=== PATIENT | male | born 1990 | race Caucasian/White ===

== ENCOUNTER → 2020-09-14 | Outpatient (CLI) | payer OTHER ==
--- NOTE | 2020-09-30 12:32 | P.CEMON ---
14 day event monitor note: Procedure details: Patient warned event monitor for a total of 14 days from 09/14/2020 until 09/25/2020. Patient was compliant with wearing monitor total of 62% of the time. Findings: Baseline rhythm is normal sinus rhythm. Patient had a total of 92 automatically triggered and symptom triggered events. Events corresponded with normal sinus rhythm and sinus tachycardia. There was no SVT, no ventricular arrhythmias, no atrial fibrillation, no atrial flutter, no PVCs and no pauses greater than 2 seconds. Patient's symptoms were not specified however c orrelated with sinus rhythm, sinus tachycardia. There were rare PACs. Sinus tachycardia up to 180 bpm. Conclusions: 1. Sinus rhythm, sinus tachycardia 2. Symptoms corresponding with sinus rhythm 3. Rare PACs 4. No atrial fibrillation, atrial flutter, ventricular ectopy or pauses greater than 2 seconds.
--- NOTE | 2020-10-03 11:43 | EM ---
14 day event monitor note: Procedure details: Patient warned event monitor for a total of 14 days from 09/14/2020 until 09/25/2020. Patient was compliant with wearing monitor total of 62% of the time. Findings: Baseline rhythm is normal sinus rhythm. Patient had a total of 92 automatically triggered and symptom triggered events. Events corresponded with normal sinus rhythm and sinus tachycardia. There was no SVT, no ventricular arrhythmias, no atrial fibrillation, no atrial flutter, no PVCs and no pauses greater than 2 seconds. Patient's symptoms were not specified however correlated with sinus rhythm, sinus tachycardia. There were rare PACs. Sinus tachycardia up to 180 bpm. Conclusions: 1. Sinus rhythm, sinus tachycardia 2. Symptoms corresponding with sinus rhythm 3. Rare PACs 4. No atrial fibrillation, atrial flutter, ventricular ectopy or pauses greater than 2 seconds. [facility]
== END | disposition home or self-care (01) ==
LOC: RADECHMAIN 12:05
PROVIDERS: ATTEND Family Medicine
DX: R00.0 Tachycardia, unspecified (principal)
CPT/HCPCS: 93270

== ENCOUNTER 2021-12-26 02:40 | Emergency (ER) | payer OTHER ==
[2021-12-26] MEDS ORDERED: LORazepam 1 MG TAB PO STA (03:05)
[2021-12-26] MEDS ORDERED: ONDANSETRON 4 MG TAB PO STA (03:05)
--- NOTE | 2021-12-26 03:05 | ED ---
SOB HPI - General Chief Complaint: Shortness of Breath Stated Complaint: SOB Time Seen by Provider: 12/26/21 02:58 Source: patient Mode of arrival: ambulatory Limitations: no limitations - Related Data Allergies Allergy/AdvReac Type Severity Reaction Status Date / Time No Known Allergies Allergy Verified 12/26/21 02:52 Review of Systems ROS Statement: Those systems with pertinent positive or pertinent negative responses have been documented in the HPI. ROS Other: All systems not noted in ROS Statement are negative. Past Medical History Past Medical History: Hypertension, Thyroid Disorder Additional Past Medical History / Comment(s): covid + 08/2019,02/2021 History of Any Multi-Drug Resistant Organisms: None Reported Past Surgical History: No Surgical Hx Reported Past Psychological History: ADD/ADHD Smoking Status: Former smoker, Vaper Past Alcohol Use History: Occasional, Rare Past Drug Use History: Marijuana General Exam Limitations: no limitations Course Vital Signs 12/26/21 12/26/21 12/26/21 02:52 03:14 03:50 Temperature 98.3 F Pulse Rate 94 58 L Respiratory 24 26 H Rate Blood Pressure 147/72 O2 Sat by Pulse 98 Oximetry 12/26/21 03:56 Temperature Pulse Rate 58 L Respiratory Rate Blood Pressure O2 Sat by Pulse Oximetry Medical Decision Making - EKG Data -: EKG Interpreted by Me (EKG Shows sinus rhythm 63 NM 167 QRS 1:30 QTC 444) Disposition Clinical Impression: Bronchospasm Disposition: HOME SELF-CARE Condition: Good Instructions (If sedation given, give patient instructions): Bronchospasm (ED) Is patient prescribed a controlled substance at d/c from ED?: No Referrals: Karl Cottrell MD [Primary Care Provider] - 1-2 days
--- NOTE | 2021-12-26 03:22 | XR ---
EXAMINATION TYPE: XR chest 1V portable DATE OF EXAM: 12/26/2021 COMPARISON: 09/15/2010 HISTORY: Chest pain TECHNIQUE: FINDINGS: Heart and mediastinum are normal. Lungs are clear. Diaphragm is normal. Bony thorax appears normal. IMPRESSION: Normal chest. No adverse change.
[2021-12-26] MEDS ORDERED: IPRATROPIUM-ALBUTEROL 3 ML NEB INHALATION STA (03:45)
[2021-12-26 05:30] VITALS: BP 107/67; PULSE 77; RESP 16; TEMP 98.2
== END 2021-12-26 04:20 | disposition home or self-care (01) ==
LOC: EC 02:40
DX: J98.01 Acute bronchospasm (principal); I10 Essential (primary) hypertension; F90.9 Attention-deficit hyperactivity disorder, unspecified type; Z87.891 Personal history of nicotine dependence; Z72.89 Other problems related to lifestyle; F12.90 Cannabis use, unspecified, uncomplicated
CPT/HCPCS: 71045; 93005; 94640; 99284

== ENCOUNTER → 2022-10-16 | Outpatient (CLI) | payer OTHER | END | disposition home or self-care (01) | LOC: LABWHC1 13:08 | PROVIDERS: ATTEND Internal Medicine Endocrinology, Diabetes & Metabolism | DX: E05.00 Thyrotoxicosis with diffuse goiter without thyrotoxic crisis or storm (principal) | CPT/HCPCS: 36415; 84439; 84443; 84445; 84480 ==

== ENCOUNTER → 2022-11-05 | Outpatient (CLI) | payer OTHER ==
[2022-11-05 11:13] LABS: T4, Free (Free Thyroxine) 3.06 ng/dL (0.80-1.80)
== END | disposition home or self-care (01) ==
LOC: LABWHC1 07:21
PROVIDERS: ATTEND Internal Medicine Endocrinology, Diabetes & Metabolism
DX: E05.00 Thyrotoxicosis with diffuse goiter without thyrotoxic crisis or storm (principal)
CPT/HCPCS: 36415; 84439; 84443; 84445; 84481

== ENCOUNTER → 2022-11-30 | Outpatient (CLI) | payer OTHER ==
[2022-11-30 16:37] LABS: T4, Free (Free Thyroxine) 2.33 ng/dL (0.80-1.80)
== END | disposition home or self-care (01) ==
LOC: LABWHC1 07:45
PROVIDERS: ATTEND Internal Medicine Endocrinology, Diabetes & Metabolism
DX: E05.00 Thyrotoxicosis with diffuse goiter without thyrotoxic crisis or storm (principal)
CPT/HCPCS: 36415; 84439; 84443; 84480

== ENCOUNTER → 2023-04-08 | Outpatient (CLI) | payer OTHER ==
[2023-04-08 18:23] LABS: T4, Free (Free Thyroxine) 2.23 ng/dL (0.80-1.80)
== END | disposition home or self-care (01) ==
LOC: LABWHC1 10:36
PROVIDERS: ATTEND Internal Medicine Endocrinology, Diabetes & Metabolism
DX: E05.90 Thyrotoxicosis, unspecified without thyrotoxic crisis or storm (principal)
CPT/HCPCS: 36415; 84439; 84443; 84480

== ENCOUNTER → 2023-06-24 | Outpatient (CLI) | payer OTHER ==
[2023-06-24 19:09] LABS: T4, Free (Free Thyroxine) 0.14 ng/dL (0.80-1.80)
== END | disposition home or self-care (01) ==
LOC: LABWHC1 12:07
PROVIDERS: ATTEND Internal Medicine Endocrinology, Diabetes & Metabolism
DX: E05.00 Thyrotoxicosis with diffuse goiter without thyrotoxic crisis or storm (principal)
CPT/HCPCS: 36415; 84439; 84443; 84480

== ENCOUNTER → 2023-07-25 | Outpatient (CLI) | payer OTHER ==
--- NOTE | 2023-07-25 22:27 | US ---
EXAMINATION TYPE: US thyroid st tissue head/neck DATE OF EXAM: 07/25/2023 COMPARISON: NONE CLINICAL INDICATION: Male, 32 years old with history of E05.90 THYROTOXICOSIS, UNSP WITHOUT THYROTOXI C CRI; Had iodine 131 done in 02/2023 patient feels something on rt side. GLAND SIZE: Right Lobe: 5.5 x 2.0 x 2.3 cm Overall Parenchyma: heterogenous Left Lobe: 5.5 x 1.6 x 2.1 cm Overall Parenchyma: heterogenous Isthmus Thickness: .4 cm NODULES RIGHT: # of nodules measured on right: 0 LEFT: # of nodules measured on left: 0 ISTHMUS: # of nodules measured in the isthmus: 0 Bilateral neck scanned, no evidence of lymphadenopathy. Markedly heterogeneous and diffusely hyperemic glandular parenchyma. IMPRESSION: 1. Thyromegaly with markedly heterogeneous and diffusely hyperemic glandular parenchyma. Correlate wi th laboratory assessment to exclude any residual hyperfunctioning state if I-131 treatment was done f or Graves' disease. 2. The patient's palpable area should be followed clinically and reassessed by ultrasound if any furt her enlargement is noted.
== END | disposition home or self-care (01) ==
LOC: RADUSWWP 09:39
PROVIDERS: ATTEND Family Medicine
DX: E07.89 Other specified disorders of thyroid (principal); E01.0 Iodine-deficiency related diffuse (endemic) goiter; E05.90 Thyrotoxicosis, unspecified without thyrotoxic crisis or storm
CPT/HCPCS: 76536

== ENCOUNTER → 2023-09-19 | Outpatient (CLI) | payer OTHER ==
[2023-09-19 19:09] LABS: Basophils % (A) 1.1 %; Eosinophils % (A) 4.2 %; HCT 44.1 % (39.6-50.0); HGB 14.6 g/dL (13.0-17.0); Lymphocytes # (A) 1.86 X 10*3/uL (0.90-5.00); Lymphocytes % (A) 19.7 %; MCH 29.4 pg (27.0-32.0); MCHC 33.1 g/dL (32.0-37.0); MCV 88.9 FL (80.0-97.0); Mean Platelet Volume 10.1 FL (9.5-12.2); Monocytes # (A) 0.67 X 10*3/uL (0.20-1.00); Monocytes % (A) 7.1 %; NRBC Per 100 WBC 0 X 10*3/uL (0.00-0.01); Neutrophils # (A) 6.37 X 10*3/uL (1.80-7.70); Neutrophils % (A) 67.5 %; Platelet Count 335 X 10*3/uL (140-440); RBC 4.96 X 10*6/uL (4.40-5.60); RDW 13.1 % (11.5-14.5); WBC 9.44 X 10*3/uL (4.50-10.00)
[2023-09-19 19:36] LABS: ALT 62 U/L (10-49); AST 36 U/L (14-35); Albumin 4.8 g/dL (3.8-4.9); Albumin/Globulin Ratio 1.78 Ratio (1.60-3.17); Alkaline Phosphatase 63 U/L (41-126); Blood Urea Nitrogen 16.8 mg/dL (9.0-27.0); Calcium 9.3 mg/dL (8.7-10.3); Carbon Dioxide 25.4 mmol/L (21.6-31.8); Chloride 104 mmol/L (96-109); Chol/HDL Ratio 2.73 Ratio; Globulin 2.7 g/dL (1.6-3.3); Glucose 112 mg/dL (70-110); LDL Cholesterol,Calculated 117.1 mg/dL (0.0-131.0); Potassium 4.3 mmol/L (3.5-5.5); Sodium 142 mmol/L (135-145); T4, Free (Free Thyroxine) 0.94 ng/dL (0.80-1.80); Total Bilirubin 0.5 mg/dL (0.3-1.2); Total Protein 7.5 g/dL (6.2-8.2); VLDL Calculation 11.58 mg/dL (5.00-40.00)
== END | disposition home or self-care (01) ==
LOC: LABWHC1 12:24
PROVIDERS: ATTEND Nurse Practitioner Family
DX: E55.9 Vitamin D deficiency, unspecified (principal); E78.5 Hyperlipidemia, unspecified; E03.8 Other specified hypothyroidism
CPT/HCPCS: 36415; 80053; 80061; 82306; 83036; 84439; 84443; 84481; 85025

== ENCOUNTER → 2023-12-10 | Outpatient (CLI) | payer OTHER | END | disposition home or self-care (01) | LOC: LABWHC1 07:19 | PROVIDERS: ATTEND Internal Medicine Endocrinology, Diabetes & Metabolism | DX: E03.8 Other specified hypothyroidism (principal) | CPT/HCPCS: 36415; 84443 ==

== ENCOUNTER → 2024-03-25 | Outpatient (CLI) | payer OTHER | END | disposition home or self-care (01) | LOC: LABWHC1 14:57 | PROVIDERS: ATTEND Internal Medicine Endocrinology, Diabetes & Metabolism | DX: E03.8 Other specified hypothyroidism (principal) | CPT/HCPCS: 36415; 84443 ==

== ENCOUNTER → 2024-10-03 | Outpatient (CLI) | payer OTHER | END | disposition home or self-care (01) | LOC: LABWHC1 08:15 | PROVIDERS: ATTEND Internal Medicine Endocrinology, Diabetes & Metabolism | DX: E03.8 Other specified hypothyroidism (principal) | CPT/HCPCS: 36415; 84443 ==